=== PATIENT | female | born 1945 | race Hispanic/Latino ===

== ENCOUNTER → 2017-12-27 | Day surgery (SDC) | payer MEDICARE, OTHER ==
[2017-12-26 10:03] VITALS: BMI 23.4
--- NOTE | 2017-12-27 13:00 | OP ---
DATE OF PROCEDURE: 12/27/2017 PROCEDURE: Esophagogastroduodenoscopy with polypectomy and biopsy. INDICATION FOR PROCEDURE: Adenomatous polyp of the gastric pylorus. DESCRIPTION OF PROCEDURE: After the risks and benefits of the procedure were explained to the patient including risks of bleeding, infection, perforation, reaction to anesthesia and/or pain, informed consent was obtained. The patient was then taken to the endoscopy suite where deep sedation was administered via propofol and anesthesia support. Once adequate sedation was achieved, the standard gastroscope was introduced into the mouth with intubation of the esophagus, stomach and the proximal small intestine with the findings listed below. The patient tolerated the procedure well with no immediate perioperative complications. FINDINGS: Esophagus: Normal appearing mucosa was seen in the proximal, mid and distal esophagus. There was no evidence of erosions, ulcerations, mass lesions or active/recent bleeding. Both the diaphragmatic pinch and GE junction were both well seen at approximately 37 cm past the incisors. Stomach: Normal appearing mucosa was seen in the gastric cardia, fundus, body and incisura. Minimally increased erythema was seen in the distal antrum at the pylorus with an 8-9 mm polyp seen in the prepyloric region and extending into the pylorus itself consistent with the previously biopsied adenomatous tissue. Using hot snare polypectomy, the polyp was then completely removed and the specimen retrieved and placed in a jar for evaluation. Biopsies were taken around the polypectomy site for evaluation of possible remaining tissue and placed in a separate jar for evaluation. Otherwise, there was no evidence of erosions, ulcerations, mass lesions or active/recent bleeding. Duodenum: Normal appearing mucosa was seen in both the duodenal bulb and second portion of the duodenum. There was no evidence of erosions, ulcerations , mass lesions or active/recent bleeding. IMPRESSION: 1. An 8-9 mm prepyloric polyp, status post hot snare polypectomy and biopsies around the region to confirm complete resection of the polyp. 2. Minimal increased mucosal erythema in the distal antrum and pyloric region of nonspecific origin. RECOMMENDATIONS: 1. We will follow up on the biopsy results with repeat EGD based on biopsy results. 2. We would continue proton-pump inhibitor daily for now for acid reflux symptoms as well as mucosal hearing. 3. Patient to follow up in the GI clinic as needed related to polypectomy. Otherwise, can follow Dr. Diaz in [place]. 4. Would hold any anticoagulation for the next 48-72 hours given polypectomy performed today. MTDD
== END ==
LOC: SDC 09:53
PROVIDERS: ATTEND Internal Medicine
PROC: 0DB78ZX Excision of Stomach, Pylorus, Via Natural or Artificial Opening Endoscopic, Diagnostic (ICD-10-PCS; principal; 2017-12-27)
PROC: 0DB78ZX Excision of Stomach, Pylorus, Via Natural or Artificial Opening Endoscopic, Diagnostic (ICD-10-PCS; 2017-12-27)
DX: D13.1 Benign neoplasm of stomach (principal); K21.9 Gastro-esophageal reflux disease without esophagitis; M19.90 Unspecified osteoarthritis, unspecified site; F32.9 Major depressive disorder, single episode, unspecified; F17.200 Nicotine dependence, unspecified, uncomplicated; K29.50 Unspecified chronic gastritis without bleeding; Z79.899 Other long term (current) drug therapy; Z98.890 Other specified postprocedural states; Z79.891 Long term (current) use of opiate analgesic
CPT/HCPCS: 88305; 88312